=== PATIENT | male | born 1990 | race African-American/Black ===

== ENCOUNTER 2020-01-31 13:35 | Emergency (ER) | payer MEDICAID ==
[~2020-01-31] VITALS: Ht 175.3 cm; Wt 63.5 kg
[2020-01-31 16:30] VITALS: BP 116/80
== END 2020-01-31 17:08 | disposition home or self-care (01) ==
LOC: ER 13:35
DX: S62.396A Other fracture of fifth metacarpal bone, right hand, initial encounter for closed fracture (principal); W22.01XA Walked into wall, initial encounter; Y93.89 Activity, other specified; Y92.89 Other specified places as the place of occurrence of the external cause; Y99.8 Other external cause status
CPT/HCPCS: 29125; 73130